=== PATIENT | female | born 1960 | race Caucasian/White ===

== ENCOUNTER 2017-05-26 16:05 | Inpatient (IN) | payer MEDICAID ==
[~2017-05-26] VITALS: Ht 167.6 cm; Wt 68.5 kg
[2017-05-26 17:36] LABS: BASOPHILS % 0.5 % (0.0-2.0); CHLORIDE 101 mEq/L (98-107); EOSINOPHILS % 0.6 % (0.0-5.0); LYMPHOCYTES % 13.8 % (20.0-50.0); MEAN CORPUSCULAR HEMOGLOBIN 28.2 pg (28.0-32.0); MEAN CORPUSCULAR VOLUME 84.4 fL (81.0-99.0); MEAN PLATELET VOLUME 8.8 fl (7.4-10.4); MONOCYTES % 10.3 % (2.0-8.0); NEUTROPHILS % 74.8 % (40.0-76.0); PLATELET 234 x1000/uL (130-400); RED BLOOD CELL COUNT 3.91 mill/uL (4.2-5.4); RED CELL DISTRIBUTION WIDTH 15.4 % (11.6-14.6)
[2017-05-26 17:43] LABS: CARBON DIOXIDE 28 mEq/L (21-32)
[2017-05-26 17:49] LABS: PROTHROMBIN TIME 10.6 sec (9.4-11.6)
[2017-05-26 18:08] LABS: HEPATITIS B SURFACE ANTIGEN NEGATIVE
[2017-05-26 18:36] LABS: HEPATITIS B CORE AB IGM NEGATIVE
[2017-05-26 18:37] LABS: HEPATITIS A AB IGM NEGATIVE (NEGATIVE)
[2017-05-26 18:43] LABS: CLARITY URINE CLEAR (CLEAR); COLOR URINE YELLOW (YELLOW); GLUCOSE URINE NEGATIVE (NEGATIVE); KETONES URINE NEGATIVE (NEGATIVE); LEUKOCYTE ESTERASE URINE 1+ (NEGATIVE); NITRITE URINE NEGATIVE (NEGATIVE); OCCULT BLOOD URINE TRACE (NEGATIVE); PROTEIN URINE NEGATIVE (NEGATIVE); SPECIFIC GRAVITY URINE 1.012 (1.005-1.030)
[2017-05-26 19:02] LABS: *AMPHETAMINES SCREEN URINE NEGATIVE (NEGATIVE); *BARBITURATES SCREEN URINE NEGATIVE (NEGATIVE); *BENZODIAZEPINES SCREEN URINE NEGATIVE (NEGATIVE); *COCAINE SCREEN URINE NEGATIVE (NEGATIVE); CANNABINOID URINE SCREEN PRESUMTIVE POSITIVE (NEGATIVE); METHADONE URINE SCREEN NEGATIVE (NEGATIVE); OPIATES URINE SCREEN NEGATIVE (NEGATIVE); PHENCYCLIDINE URINE SCREEN NEGATIVE (NEGATIVE)
[2017-05-26] MEDS ORDERED: MORPHINE SULFATE 4 MG/ML CPJ (NOT FOR IM USE) IV ONE (20:15)
[2017-05-26] MEDS ORDERED: SODIUM CHLORIDE 0.9% 1000ML BAG (SEPSIS BOLUS) IV ONE (20:45)
[2017-05-26] MEDS ORDERED: ONDANSETRON HCL 4MG/2ML VIAL IV PRN (22:15)
[2017-05-26] MEDS ORDERED: IPRATROPIUM/ALBUTEROL 0.5-3(2.5)MG/3ML NEB INH PRN (22:15)
[2017-05-26] MEDS ORDERED: DEXTROSE 50% WATER 50ML SYRINGE IV PRN (23:30)
[2017-05-27] VITALS (7 sets, daily range): BP systolic 99–123; BP diastolic 52–61
[2017-05-27] MEDS: SODIUM CHLORIDE 0.9% 1,000 ML IV SCH ×2 (02:04→15:49)
[2017-05-27] MEDS: MORPHINE SULFATE 4 MG/ML CPJ (NOT FOR IM USE) IV PRN ×5 (02:10→22:36)
[2017-05-27] MEDS ORDERED: SENN-169 PO (02:47)
[2017-05-27] MEDS ORDERED: LIPA1CAP18 PO (02:47)
[2017-05-27] MEDS ORDERED: GABA-531 PO (02:47)
[2017-05-27] MEDS ORDERED: GABA-290 PO (02:47)
[2017-05-27] MEDS ORDERED: ATOR80TA PO (02:47)
[2017-05-27] MEDS ORDERED: PYRI200T10 PO (02:47)
[2017-05-27] MEDS ORDERED: MORP15TA67 PO (02:47)
[2017-05-27] MEDS ORDERED: ISON300T4 PO (02:47)
[2017-05-27] MEDS ORDERED: OMEP20TA2 PO (02:47)
[2017-05-27] MEDS: BLOOD SUGAR DIAGNOSTIC STRIP TEST SCH ×4 (06:43→20:35)
[2017-05-27 07:11] LABS: BASOPHILS % 0.4 % (0.0-2.0); HEMATOCRIT. 32.6 % (36.0-48.0); HEMOGLOBIN. 10.8 g/dL (12.0-16.0); LYMPHOCYTES % 16.7 % (20.0-50.0); MEAN CORPUSCULAR HEMOGLOBIN 28.2 pg (28.0-32.0); MONOCYTES % 10.7 % (2.0-8.0); NEUTROPHILS % 71.2 % (40.0-76.0); PLATELET 241 x1000/uL (130-400); RED BLOOD CELL COUNT 3.84 mill/uL (4.2-5.4); RED CELL DISTRIBUTION WIDTH 15.4 % (11.6-14.6)
[2017-05-27 07:32] LABS: CARBON DIOXIDE 27 mEq/L (21-32); CHLORIDE 106 mEq/L (98-107); CREATINE KINASE 24 IU/L (26-192); LDL CHOLESTEROL 101 mg/dL (5-100); TROPONIN I < 0.02 ng/mL (0.00-0.04)
[2017-05-27 07:37] LABS: CREATINE KINASE MB FRACTION < 0.5 ng/mL (0.5-3.6); HDL CHOLESTEROL 19 mg/dL (40-59)
[2017-05-27] MEDS ORDERED: SERT50TA PO (07:49)
[2017-05-27] MEDS ORDERED: SERT100T PO (07:49)
[2017-05-27] MEDS ORDERED: INFLUENZA VIRUS VACCINE 0.5ML SYR IM ONE (08:00)
[2017-05-27] MEDS: ENOXAPARIN 40MG/0.4ML SYR SUBCUT SCH (09:13)
[2017-05-27] MEDS: INSULIN LISPRO 100 UNITS/ML SUBCUT SCH ×4 (09:21→20:39)
[2017-05-27 17:07] LABS: CREATINE KINASE 18 IU/L (26-192); CREATINE KINASE MB FRACTION < 0.5 ng/mL (0.5-3.6); TROPONIN I < 0.02 ng/mL (0.00-0.04)
[2017-05-28] VITALS: BP 113/58
[2017-05-28] MEDS: MORPHINE SULFATE 4 MG/ML CPJ (NOT FOR IM USE) IV PRN ×3 (03:38→13:11)
[2017-05-28] MEDS: BLOOD SUGAR DIAGNOSTIC STRIP TEST SCH ×2 (06:48→12:20)
[2017-05-28 07:31] LABS: BASOPHILS % 0.9 % (0.0-2.0); EOSINOPHILS % 0.8 % (0.0-5.0); HEMOGLOBIN. 11.2 g/dL (12.0-16.0); LYMPHOCYTES % 21.3 % (20.0-50.0); MEAN CORPUSCULAR VOLUME 84.8 fL (81.0-99.0); MEAN PLATELET VOLUME 9.4 fl (7.4-10.4); MONOCYTES % 10.7 % (2.0-8.0); NEUTROPHILS % 66.3 % (40.0-76.0); PLATELET 278 x1000/uL (130-400); RED BLOOD CELL COUNT 4.01 mill/uL (4.2-5.4); RED CELL DISTRIBUTION WIDTH 15.5 % (11.6-14.6)
[2017-05-28] MEDS: INSULIN LISPRO 100 UNITS/ML SUBCUT SCH ×2 (07:50→13:23)
[2017-05-28 08:00] VITALS: BP 111/52
[2017-05-28] MEDS: ENOXAPARIN 40MG/0.4ML SYR SUBCUT SCH (08:03)
[2017-05-28] MEDS: SODIUM CHLORIDE 0.9% 1,000 ML IV SCH (08:04)
[2017-05-28 08:09] LABS: CARBON DIOXIDE 28 mEq/L (21-32); CHLORIDE 105 mEq/L (98-107)
[2017-05-28 12:00] VITALS: BP_SYST 121; BP_SYST 141; BP_DIAS 61; BP_DIAS 81
[2017-05-28 15:10] VITALS: BP 121/61
== END 2017-05-28 15:50 | disposition home or self-care (01) | DRG 282 ==
LOC: ER 16:36 → 6EST 20:17 → ENRESERV 22:31 → CANRESERV 22:31 → ENRESERV 23:14 → 6EST 05-27 06:43
PROVIDERS: ADMIT Internal Medicine; ATTEND Internal Medicine
DX: K85.90 Acute pancreatitis without necrosis or infection, unspecified (principal); N17.0 Acute kidney failure with tubular necrosis; R65.10 Systemic inflammatory response syndrome (SIRS) of non-infectious origin without acute organ dysfunction; E44.0 Moderate protein-calorie malnutrition; R16.0 Hepatomegaly, not elsewhere classified; K74.60 Unspecified cirrhosis of liver; N39.0 Urinary tract infection, site not specified; E87.1 Hypo-osmolality and hyponatremia; I10 Essential (primary) hypertension; D64.9 Anemia, unspecified; E11.9 Type 2 diabetes mellitus without complications; F12.90 Cannabis use, unspecified, uncomplicated; E78.5 Hyperlipidemia, unspecified; B19.20 Unspecified viral hepatitis C without hepatic coma; F19.10 Other psychoactive substance abuse, uncomplicated; D25.9 Leiomyoma of uterus, unspecified; K21.9 Gastro-esophageal reflux disease without esophagitis; N20.0 Calculus of kidney; Z79.899 Other long term (current) drug therapy; Z88.0 Allergy status to penicillin; Z88.1 Allergy status to other antibiotic agents; Z88.6 Allergy status to analgesic agent; Z78.9 Other specified health status; Z86.11 Personal history of tuberculosis
CPT/HCPCS: 36415; 74176; 76830; 76856; 80053; 80061; 80305; 81001; 82550; 82553; 82962; 83036; 83605; 83690; 84443; 84484; 85025; 85610; 86304; 86705; 86709; 86803; 87040; 87086; 87340; 87536; 90686; 93005; 96374; 99285; G0482; J1650; J1815; J2270; J7030

== ENCOUNTER 2020-02-04 16:22 | Inpatient (IN) | payer MEDICAID ==
[~2020-02-04] VITALS: Ht 172.7 cm; Wt 68.0 kg
[~2020-02-04 16:22] MED LIST: ATOR80TA PO; GABA-290 PO; GABA-531 PO; ISON300T19 PO; LIPA1CAP18 PO; MORP15TA67 PO; OMEP20TA2 PO; PYRI200T10 PO; SENN-170 PO; SERT100T PO; SERT50TA PO
[2020-02-04] MEDS ORDERED: SODIUM CHLORIDE 0.9% 1,000 ML IV ONE (17:02)
[2020-02-04] MEDS ORDERED: ONDANSETRON HCL 4MG/2ML INJ IV STA (17:02)
[2020-02-04] MEDS ORDERED: KETOROLAC 30MG/ML VIAL IV STA (17:02)
[2020-02-04 18:17] LABS: CLARITY URINE CLEAR (CLEAR); COLOR URINE YELLOW (YELLOW); KETONES URINE 2+ (NEGATIVE); LEUKOCYTE ESTERASE URINE NEGATIVE (NEGATIVE); NITRITE URINE NEGATIVE (NEGATIVE); OCCULT BLOOD URINE TRACE (NEGATIVE); PH URINE 5.5 (4.5-8.0); PROTEIN URINE 1+ (NEGATIVE); SPECIFIC GRAVITY URINE 1.039 (1.005-1.030); UROBILINOGEN URINE 0.2 E.U./dL (0.2-1.0)
[2020-02-04 18:51] LABS: BASOPHILS % 0.8 % (0.0-2.0); EOSINOPHILS % 0.2 % (0.0-5.0); HEMATOCRIT. 43.8 % (36.0-48.0); HEMOGLOBIN. 15.3 g/dL (12.0-16.0); LYMPHOCYTES % 20.5 % (20.0-50.0); MEAN CORPUSCULAR HEMOGLOBIN 29.1 pg (28.0-32.0); MEAN CORPUSCULAR VOLUME 83.3 fL (81.0-99.0); MONOCYTES % 9.1 % (2.0-8.0); NEUTROPHILS % 69.4 % (40.0-76.0); RED BLOOD CELL COUNT 5.26 mill/uL (4.2-5.4); RED CELL DISTRIBUTION WIDTH 13.8 % (11.6-14.6)
[2020-02-04 18:58] LABS: CHLORIDE 89 mEq/L (98-107)
[2020-02-04 19:02] LABS: INR 1.1; PROTHROMBIN TIME 11.4 sec (9.6-11.0)
[2020-02-04 19:11] LABS: PLATELET 272 x1000/uL (130-400)
[2020-02-04] MEDS ORDERED: METRONIDAZOLE 500 MG PREMIX 100 ML IV ONE (19:30)
[2020-02-04] MEDS: CEFTRIAXONE 1 G PREMIX 50 ML IV NR ×3 (19:47→21:43)
[2020-02-04] MEDS ORDERED: INSULIN LISPRO 100 UNITS/ML SUBCUT NR (21:34)
[2020-02-04] MEDS ORDERED: ONDANSETRON HCL 4MG/2ML INJ IV PRN (21:34)
[2020-02-04] MEDS: MORPHINE SULFATE 4 MG/ML CPJ (NOT FOR IM USE) IV PRN (21:43)
[2020-02-04 22:00] VITALS: BP 168/98
[2020-02-04] MEDS ORDERED: DEXTROSE 50% WATER 50ML SYRINGE IV PRN (23:00)
[2020-02-05] VITALS: BP 168/98
[2020-02-05] MEDS ORDERED: SODIUM CHL 0.9% + KCL 20MEQ/L 1,000 ML IV SCH (00:30)
[2020-02-05] MEDS ORDERED: CLONIDINE 0.1MG TABLET PO PRN (00:30)
[2020-02-05] MEDS: ONDANSETRON HCL 4MG/2ML INJ IV PRN ×4 (01:36→13:47)
[2020-02-05 04:00] VITALS: BP 120/72
[2020-02-05] MEDS: MORPHINE SULFATE 4 MG/ML CPJ (NOT FOR IM USE) IV PRN ×2 (06:15→18:21)
[2020-02-05] MEDS: BLOOD SUGAR DIAGNOSTIC STRIP TEST SCH ×4 (06:25→21:12)
[2020-02-05] MEDS: OMEPRAZOLE 20MG CAPSULE EXTENDED RELEASE PO SCH (06:25)
[2020-02-05 07:18] LABS: BASOPHILS % 0.3 % (0.0-2.0); EOSINOPHILS % 1.6 % (0.0-5.0); HEMATOCRIT. 40.5 % (36.0-48.0); HEMOGLOBIN. 13.6 g/dL (12.0-16.0); LYMPHOCYTES % 34.3 % (20.0-50.0); MEAN CORPUSCULAR HEMOGLOBIN 28.1 pg (28.0-32.0); MEAN CORPUSCULAR VOLUME 83.6 fL (81.0-99.0); MEAN PLATELET VOLUME 9.5 fl (7.4-10.4); MONOCYTES % 8.9 % (2.0-8.0); NEUTROPHILS % 54.9 % (40.0-76.0); PLATELET 277 x1000/uL (130-400); RED BLOOD CELL COUNT 4.84 mill/uL (4.2-5.4); RED CELL DISTRIBUTION WIDTH 13.6 % (11.6-14.6)
[2020-02-05 07:38] LABS: CHLORIDE 93 mEq/L (98-107)
[2020-02-05 07:48] LABS: LDL CHOLESTEROL 173 mg/dL (5-100)
[2020-02-05 07:52] LABS: HDL CHOLESTEROL 31 mg/dL (40-59)
[2020-02-05 08:00] VITALS: BP 135/75
[2020-02-05] MEDS: INSULIN LISPRO 100 UNITS/ML SUBCUT SCH ×4 (08:56→21:10)
[2020-02-05] MEDS: SERTRALINE HCL 100MG TABLET PO SCH (09:06)
[2020-02-05] MEDS: AMLODIPINE 10MG TABLET PO SCH (09:06)
[2020-02-05] MEDS: ENOXAPARIN 40MG/0.4ML SYR SUBCUT SCH (09:08)
[2020-02-05] MEDS ORDERED: INSULIN GLARGINE UD 100 UNITS/ML SYR SUBCUT SCH (10:00)
[2020-02-05] MEDS ORDERED: MORPHINE SULFATE 2 MG/ML CPJ (NOT FOR IM USE) IV NR (10:45)
[2020-02-05] MEDS: METOCLOPRAMIDE HCL 10MG/2ML VIAL IV SCH ×3 (10:51→23:17)
[2020-02-05 12:00] VITALS: BP 128/65
[2020-02-05] MEDS: METRONIDAZOLE 500 MG PREMIX 100 ML IV SCH ×2 (14:35→21:08)
[2020-02-05 16:00] VITALS: BP 120/68
[2020-02-05 17:18] LABS: PHENCYCLIDINE URINE SCREEN NEGATIVE (NEGATIVE)
[2020-02-05 17:19] LABS: *AMPHETAMINES SCREEN URINE NEGATIVE (NEGATIVE); CANNABINOID URINE SCREEN PRESUMTIVE POSITIVE (NEGATIVE); METHADONE URINE SCREEN NEGATIVE (NEGATIVE); OPIATES URINE SCREEN PRESUMTIVE POSITIVE (NEGATIVE)
[2020-02-05 17:20] LABS: *BARBITURATES SCREEN URINE NEGATIVE (NEGATIVE); *BENZODIAZEPINES SCREEN URINE NEGATIVE (NEGATIVE); *COCAINE SCREEN URINE NEGATIVE (NEGATIVE)
[2020-02-05 20:00] VITALS: BP 135/81
[2020-02-05] MEDS ORDERED: ATORVASTATIN CALCIUM 40MG TABLET PO SCH (21:00)
[2020-02-05] MEDS: GABAPENTIN 300MG CAPSULE PO SCH (21:01)
[2020-02-05] MEDS: ATORVASTATIN CALCIUM 40MG TABLET PO SCH (21:02)
[2020-02-05] MEDS: CEFTRIAXONE 1 G PREMIX 50 ML IV SCH (21:15)
[2020-02-05] MEDS: INSULIN GLARGINE UD 100 UNITS/ML SYR SUBCUT SCH (21:51)
[2020-02-06] VITALS: BP 133/75
[2020-02-06] MEDS: ONDANSETRON HCL 4MG/2ML INJ IV PRN ×3 (03:30→22:12)
[2020-02-06 04:00] VITALS: BP 138/80
[2020-02-06 06:08] LABS: BASOPHILS % 0.5 % (0.0-2.0); EOSINOPHILS % 2.2 % (0.0-5.0); HEMATOCRIT. 41.1 % (36.0-48.0); HEMOGLOBIN. 13.7 g/dL (12.0-16.0); LYMPHOCYTES % 36.6 % (20.0-50.0); MEAN CORPUSCULAR VOLUME 83.9 fL (81.0-99.0); MONOCYTES % 8.5 % (2.0-8.0); NEUTROPHILS % 52.2 % (40.0-76.0); PLATELET 245 x1000/uL (130-400); RED CELL DISTRIBUTION WIDTH 13.7 % (11.6-14.6)
[2020-02-06 06:15] LABS: CHLORIDE 98 mEq/L (98-107)
[2020-02-06] MEDS: METRONIDAZOLE 500 MG PREMIX 100 ML IV SCH ×2 (06:22→14:25)
[2020-02-06] MEDS: METOCLOPRAMIDE HCL 10MG/2ML VIAL IV SCH ×3 (06:22→17:25)
[2020-02-06] MEDS: MORPHINE SULFATE 4 MG/ML CPJ (NOT FOR IM USE) IV PRN ×3 (06:23→22:12)
[2020-02-06] MEDS: OMEPRAZOLE 20MG CAPSULE EXTENDED RELEASE PO SCH (06:53)
[2020-02-06] MEDS: BLOOD SUGAR DIAGNOSTIC STRIP TEST SCH ×4 (07:00→21:00)
[2020-02-06] MEDS: SODIUM CHLORIDE 0.9% 1,000 ML IV SCH ×3 (07:01→17:25)
[2020-02-06 08:00] VITALS: BP 131/81
[2020-02-06] MEDS: INSULIN LISPRO 100 UNITS/ML SUBCUT SCH ×4 (08:47→22:54)
[2020-02-06] MEDS: AMLODIPINE 10MG TABLET PO SCH (08:53)
[2020-02-06] MEDS: SERTRALINE HCL 100MG TABLET PO SCH (08:53)
[2020-02-06] MEDS: ENOXAPARIN 40MG/0.4ML SYR SUBCUT SCH (08:53)
[2020-02-06] MEDS ORDERED: POTASSIUM CHLORIDE INJ 40 MEQ in DEXT 5% WATER 500 ML IV NR (10:30)
[2020-02-06] MEDS: INSULIN GLARGINE UD 100 UNITS/ML SYR SUBCUT SCH ×2 (10:44→22:53)
[2020-02-06 12:00] VITALS: BP 146/82
[2020-02-06 16:00] VITALS: BP 130/73
[2020-02-06] MEDS: CEFTRIAXONE 1 G PREMIX 50 ML IV SCH (21:59)
[2020-02-06] MEDS: GABAPENTIN 300MG CAPSULE PO SCH (21:59)
[2020-02-06] MEDS: ATORVASTATIN CALCIUM 40MG TABLET PO SCH (21:59)
[2020-02-07] VITALS: BP 110/67
[2020-02-07] MEDS: METOCLOPRAMIDE HCL 10MG/2ML VIAL IV SCH ×3 (00:06→11:49)
[2020-02-07] MEDS: METRONIDAZOLE 500 MG PREMIX 100 ML IV SCH ×3 (00:06→14:09)
[2020-02-07 04:00] VITALS: BP 115/72
[2020-02-07] MEDS: SODIUM CHLORIDE 0.9% 1,000 ML IV SCH ×2 (04:15→14:09)
[2020-02-07] MEDS: OMEPRAZOLE 20MG CAPSULE EXTENDED RELEASE PO SCH (07:06)
[2020-02-07] MEDS: BLOOD SUGAR DIAGNOSTIC STRIP TEST SCH ×2 (07:06→11:50)
[2020-02-07 07:16] LABS: CHLORIDE 102 mEq/L (98-107)
[2020-02-07] MEDS: INSULIN LISPRO 100 UNITS/ML SUBCUT SCH ×2 (07:16→11:56)
[2020-02-07 08:00] VITALS: BP 164/102
[2020-02-07] MEDS: INSULIN GLARGINE UD 100 UNITS/ML SYR SUBCUT SCH (09:02)
[2020-02-07] MEDS: AMLODIPINE 10MG TABLET PO SCH (09:05)
[2020-02-07] MEDS: SERTRALINE HCL 100MG TABLET PO SCH (09:05)
[2020-02-07] MEDS: ENOXAPARIN 40MG/0.4ML SYR SUBCUT SCH (09:06)
[2020-02-07] MEDS: MORPHINE SULFATE 4 MG/ML CPJ (NOT FOR IM USE) IV PRN (10:11)
[2020-02-07 12:00] VITALS: BP 145/79
[2020-02-07 16:00] VITALS: BP 137/86
[2020-02-07 16:48] VITALS: BP 137/85
[2020-02-08] MEDS ORDERED: FAMOTIDINE 20MG TABLET PO SCH (09:00)
== END 2020-02-07 17:44 | disposition home or self-care (01) | DRG 249 ==
LOC: ER 16:22 → ENRESERV 21:02 → 6EST 22:11
PROVIDERS: ADMIT Internal Medicine; ATTEND Internal Medicine
DX: K52.9 Noninfective gastroenteritis and colitis, unspecified (principal); E87.1 Hypo-osmolality and hyponatremia; E87.6 Hypokalemia; E87.8 Other disorders of electrolyte and fluid balance, not elsewhere classified; E78.5 Hyperlipidemia, unspecified; F12.90 Cannabis use, unspecified, uncomplicated; E11.65 Type 2 diabetes mellitus with hyperglycemia; B19.20 Unspecified viral hepatitis C without hepatic coma; D25.9 Leiomyoma of uterus, unspecified; N20.0 Calculus of kidney; K21.9 Gastro-esophageal reflux disease without esophagitis; I10 Essential (primary) hypertension; F32.9 Major depressive disorder, single episode, unspecified; F17.210 Nicotine dependence, cigarettes, uncomplicated; Z88.0 Allergy status to penicillin; Z88.1 Allergy status to other antibiotic agents; Z88.6 Allergy status to analgesic agent; Z79.899 Other long term (current) drug therapy; Z87.440 Personal history of urinary (tract) infections
CPT/HCPCS: 36415; 74176; 80048; 80053; 80061; 80305; 81003; 82962; 83036; 84484; 85025; 93005; 99285; J0696; J1650; J1815; J1885; J2270; J2405; J2765; J3480; J3490; J7030; J7060

== ENCOUNTER 2022-06-21 13:28 | Emergency (ER) | payer MEDICAID ==
[~2022-06-21] VITALS: Ht 157.5 cm; Wt 73.0 kg
[~2022-06-21 13:28] MED LIST changes: -GABA-531 PO; +GABA-532 PO; -OMEP20TA2 PO; +OMEP20TA23 PO; -SENN-170 PO; +SENN-257 PO
[2022-06-21 13:30] VITALS: BP 188/99
[2022-06-21 16:15] LABS: BASOPHILS % 0.4 % (0.0-2.0); EOSINOPHILS % 2.2 % (0.0-5.0); HEMATOCRIT. 39.3 % (36.0-48.0); HEMOGLOBIN. 13.2 g/dL (12.0-16.0); LYMPHOCYTES % 46.1 % (20.0-50.0); MEAN CORPUSCULAR HEMOGLOBIN 29.2 pg (28.0-32.0); MEAN CORPUSCULAR VOLUME 87.2 fL (81.0-99.0); MONOCYTES % 7.1 % (2.0-8.0); NEUTROPHILS % 44.2 % (40.0-76.0); PLATELET 238 x1000/uL (130-400); RED BLOOD CELL COUNT 4.51 mill/uL (4.2-5.4); RED CELL DISTRIBUTION WIDTH 15.2 % (11.6-14.6)
[2022-06-21 16:26] LABS: CHLORIDE 110 mEq/L (98-107)
== END 2022-06-22 01:54 | disposition left against medical advice (07) ==
LOC: ER 13:28 → CANBEDREQ 06-22 08:10
DX: R42 Dizziness and giddiness (principal); Z53.21 Procedure and treatment not carried out due to patient leaving prior to being seen by health care provider
CPT/HCPCS: 36415; 80053; 84484; 85025; 93005; 99284